=== PATIENT | male | born 1955 | race Caucasian/White ===

== ENCOUNTER → 2019-05-06 | Outpatient (CLI) | payer BC ==
--- NOTE | 2019-05-06 15:29 | XR ---
EXAMINATION TYPE: XR chest 2V DATE OF EXAM: 05/06/2019 COMPARISON: 11/20/2015 TECHNIQUE: PA and lateral views submitted. HISTORY: Shortness of breath FINDINGS: The lungs are clear and there is no pneumothorax, pleural effusion, or focal pneumonia. Hypertrophi c and degenerative change of the spine. No overt failure. IMPRESSION: 1. No acute process.
== END | disposition home or self-care (01) ==
LOC: RADXRMAIN 14:51
PROVIDERS: ATTEND Family Medicine
DX: R06.02 Shortness of breath (principal)
CPT/HCPCS: 71046

== ENCOUNTER → 2020-04-23 | Outpatient (CLI) | payer BC | LOC: LABWHC1 12:16 | PROVIDERS: ATTEND Surgery | DX: Z11.59 Encounter for screening for other viral diseases (principal) ==

== ENCOUNTER → 2020-04-26 | Day surgery (SDC) | payer BC ==
[2020-04-22 15:34] VITALS: BMI 30.1
[~2020-04-26] MED LIST: ACETAMINOPHEN TAB 500 MG TAB PO ONE; BUPIVACAIN-EPI 0.25%-1:200,000 30 ML VIAL SQ ONE; DEXAMETHASONE SOD PHOSPHATE 10 MG/ML 1 ML VIAL IV ONE; GLYCOPYRROLATE 0.2 MG/ML 2 ML VIAL ONE; HEPARIN SODIUM,PORCINE 5,000 UNIT/ML 1 ML VIAL SQ ONE; HYDROcodone/APAP 5-325MG 1 EACH TAB PO PRN; HYDROmorphone 0.5 MG/0.5 ML SYRINGE IVP PRN; LACTATED RINGERS 1,000 ML IV ONE; LIDOCAINE 1% (10MG/ML) FOR IV START INTRADERMA ONE; LIDOCAINE 1% (10MG/ML) FOR IV START INTRADERMA PRN; LIDOCAINE 1% INJ 10MG/ML (20 ML MDV) ONE; MIDAZOLAM 2 MG/2 ML VIAL ONE; NALOXONE 0.4 MG/ML 1 ML VIAL IV PRN; NEOSTIGMINE 1 MG/ML 10 ML VIAL ONE; ONDANSETRON 4 MG/2 ML VIAL IVP ONE; ONDANSETRON 4 MG/2 ML VIAL IVP PRN; PROPOFOL 10 MG/ML 20 ML VIAL IV ONE; ROCURONIUM BROMIDE 10 MG/ML 5 ML VIAL IV ONE; SCOPOLAMINE 1.5MG/72HR PATCH TRANSDERM ONE; SUCCINYLCHOLINE CHLORIDE 100 MG/5 ML SYR IV ONE; fentaNYL (PF) 50 MCG/ML 2 ML AMP ONE
[2020-04-26 06:50] LABS: HCT 38.9 % (39.0-53.0); HGB 12.8 gm/dL (13.0-17.5); MCH 32.3 pg (25.0-35.0); MCHC 32.8 g/dL (31.0-37.0); MCV 98.4 fL (80.0-100.0); Mean Platelet Volume 7.1; Platelet Count 236 k/uL (150-450); RBC 3.95 m/uL (4.30-5.90); RDW 13.1 % (11.5-15.5); WBC 4.8 k/uL (3.8-10.6)
[2020-04-26] MEDS: LACTATED RINGERS 1,000 ML IV SCH ×2 (07:01→11:05)
--- NOTE | 2020-04-26 07:44 | P.GSHP ---
History of Present Illness H&P Date: 04/26/20 Chief Complaint: Right inguinal hernia 64-year-old male here today for elective repair right inguinal hernia. Has been present for quite some time. Increasing in size. Pain with lifting. History of previous open left hernia repair in the past. No symptoms on the left. Past Medical History Past Medical History: Hyperlipidemia, Hypertension, Osteoarthritis (OA) Additional Past Medical History / Comment(s): hx migraines, History of Any Multi-Drug Resistant Organisms: None Reported Past Surgical History: Hernia Repair Additional Past Surgical History / Comment(s): left inguinal hernia Past Anesthesia/Blood Transfusion Reactions: No Reported Reaction Smoking Status: Never smoker - Past Family History Mother Family Medical History: Coronary Artery Disease (CAD) (Mother at age of 88 from a CABG 4 .), Hyperlipidemia, Myocardial Infarction ([place]) Father Family Medical History: Cancer Brother(s) Family Medical History: Myocardial Infarction ([place]) (Patient had one brother who at age of 64 from an [place]) Sister(s) Family Medical History: No Reported History (Patient has 4 sisters no major medical problems) Daughter(s) Family Medical History: No Reported History (Patient has 2 daughters no major medical problems) Medications and Allergies Home Medications Medication Instructions Recorded Confirmed Type amLODIPine/ATORVASTATIN 1 tab PO 1900 04/22/20 04/26/20 History [amLODIPine/ATORVASTATIN 5-20 MG] Allergies Allergy/AdvReac Type Severity Reaction Status Date / Time No Known Allergies Allergy Verified 04/26/20 06:32 Surgical - Exam Vital Signs Temp Pulse Resp BP Pulse Ox 97.1 F L 59 L 18 148/87 98 04/26/20 07:03 04/26/20 07:03 04/26/20 07:03 04/26/20 07:03 04/26/20 07:03 Physical exam: General: Well-developed, well-nourished HEENT: Normocephalic, sclerae nonicteric Abdomen: Nontender, nondistended, reducible right we'll hernia moderate sized, no hernia palpable on left Extremities: No edema Neuro: Alert and oriented Results - Labs 04/26/20 06:41 Abnormal Lab Results - Last 24 Hours (Table) 04/26/20 Range/Units 06:41 RBC 3.95 L (4.30-5.90) m/uL Hgb 12.8 L (13.0-17.5) gm/dL Hct 38.9 L (39.0-53.0) % Assessment and Plan (1) Right inguinal hernia Narrative/Plan: Options again reviewed. We'll proceed with laparoscopic da Fracisco assisted repair right inguinal hernia with mesh, possible bilateral. Risks of bleeding, infection, recurrence, bladder and bowel injury, numbness, nerve injury, conversion to an open procedure were discussed with the patient. The patient understands and wishes to proceed. Current Visit: Yes Status: Acute Code(s): K40.90 - UNIL INGUINAL HERNIA, W/O OBST OR GANGR, NOT SPCF RECUR SNOMED Code(s): 908029074
--- NOTE | 2020-04-26 09:26 | P.OP ---
Date of Procedure: 04/26/20 Procedure(s) Performed: PREOPERATIVE DIAGNOSIS: Right inguinal hernia POSTOPERATIVE DIAGNOSIS: Right direct inguinal hernia, small indirect PROCEDURE: Laparoscopic repair right inguinal hernia with the da Fracisco robot assistance with mesh SURGEON: Kaity EBL: Minimal ANESTHESIA: General COMPLICATIONS: None OPERATIVE PROCEDURE: Patient was placed in the operating table in the supine position. The patient was placed under general anesthesia. The abdomen was prepped and draped in usual sterile fashion. A small curvilinear supraumbilical incision was made. The fascia was retracted anteriorly with Jim forceps. The Veress needle was inserted. The saline drop test was normal. Insufflation took place to 15 mmHg. An 8 mm trocar was placed into the peritoneal cavity. 2 additional 8 mm trochars were placed in the right upper quadrant and left upper quadrant under visualization. The robotic arms were then brought in and docked into place. The fenestrated bipolar was used in the left arm and the laparoscopic mari was utilized in the right arm. A 30 8 mm scope was used in the up position. The peritoneal cavity was inspected. No hernia was seen on the left-hand side. On the right-hand side the patient had a moderate to large sized direct inguinal hernia and a small indirect hernia as well. The peritoneum was incised in a horizontal fashion cephalad to the internal inguinal ring. Following that careful dissection of the preperitoneal space took place. This took place using both electrocautery, sharp dissection but primarily blunt dissection. Visualization of the pubic tubercle and Ricardo's ligament took place medially. Full dissection took place laterally as well. Both hernia sacs were fully dissected. Once we had adequate space the 15 x 10 progrip mesh was advanced into the preperitoneal space and flattened out appropriately to cover all potential hernia sites. No sutures were used. The peritoneal defect was then closed using a locking 2-0 VLok suture. The redundant preperitoneal tissue was then sewn back to our suture line anteriorly using the same 20V lock suture to help prevent future recurrence. The pneumoperitoneum was then evacuated. The skin of all 3 sites was closed using a 4-0 Monocryl stitch. Skin glue was then applied. DISPOSITION: Stable to recovery room
[2020-04-26 09:53] VITALS: TEMP 97.2
[2020-04-26 13:13] VITALS: BP 143/84; PULSE 85; RESP 18
== END ==
LOC: OR 06:05
PROVIDERS: ATTEND Surgery
DX: K40.90 Unilateral inguinal hernia, without obstruction or gangrene, not specified as recurrent (principal); I10 Essential (primary) hypertension; E78.5 Hyperlipidemia, unspecified; K21.9 Gastro-esophageal reflux disease without esophagitis; M19.90 Unspecified osteoarthritis, unspecified site; Z79.899 Other long term (current) drug therapy; Z86.69 Personal history of other diseases of the nervous system and sense organs; Z82.49 Family history of ischemic heart disease and other diseases of the circulatory system; Z98.890 Other specified postprocedural states; Z82.5 Family history of asthma and other chronic lower respiratory diseases; Z80.1 Family history of malignant neoplasm of trachea, bronchus and lung
CPT/HCPCS: 85027; 49650; J2250; J1644; J1100; J2710; J0690; J2405; J2001; J3010; J0330; J2704; J1170

== ENCOUNTER → 2022-01-20 | Outpatient (CLI) | payer MEDICARE ==
--- NOTE | 2022-01-20 14:21 | XR ---
EXAMINATION TYPE: XR chest 2V DATE OF EXAM: 01/20/2022 COMPARISON: Chest x-ray 05/06/2019 HISTORY: M 54.2, J 15 TECHNIQUE: Frontal and lateral views of the chest are obtained. FINDINGS: Interstitium is diffusely increased. No evident pneumothorax or pleural effusion. Cardiac mediastinal silhouette is stable accounting for differences in technique. Suspect some bilateral grou ndglass opacity within the lungs. The aorta is dense. IMPRESSION: Interstitial lung disease a be present, correlate for pneumonia, consider pulmonary cons ult
--- NOTE | 2022-01-20 14:25 | XR ---
Cervical spine HISTORY: M 54.2, J 15, neck pain 6 views of the cervical spine There is multilevel spondylosis, loss of disc height is greatest at C5-6, C6-7. Facet arthropathy rommel nges present. There is anterolisthesis grade 1 C4-5, retrolisthesis grade 1 C6-7. Foraminal encroachm ent is present at C5-6 and C6-7 on the left, foramina on the right not optimally evaluated in the upp er cervical spine, suspect foraminal encroachment C5-6 and C6-7 on the right. Cervical vertebral bodi es show preserved height and bone mineralization. Prevertebral soft tissues are normal. There is no a cute fracture or subluxation. Odontoid view is somewhat limited. IMPRESSION: Degenerative disc disease and facet arthropathy, foraminal encroachment. Cervical MRI may be of benefit.
== END | disposition home or self-care (01) ==
LOC: RADXRMAIN 12:51
PROVIDERS: ATTEND Family Medicine
DX: J84.9 Interstitial pulmonary disease, unspecified (principal); M50.30 Other cervical disc degeneration, unspecified cervical region; M47.812 Spondylosis without myelopathy or radiculopathy, cervical region
CPT/HCPCS: 71046; 72050

== ENCOUNTER → 2025-04-29 | Outpatient (CLI) | payer MEDICARE ==
[2025-04-29 16:05] LABS: ALT 23 U/L (10-49); AST 25 U/L (14-35); Chol/HDL Ratio 2.76 Ratio; LDL Cholesterol,Calculated 51.7 mg/dL (0.0-131.0)
== END | disposition home or self-care (01) ==
LOC: LABWHC1 08:24
PROVIDERS: ATTEND Internal Medicine Cardiovascular Disease
DX: E78.2 Mixed hyperlipidemia (principal)
CPT/HCPCS: 36415; 80061; 84450; 84460